=== PATIENT | female | born 1980 | race Caucasian/White ===

== ENCOUNTER 2020-01-01 12:22 | Emergency (ER) | payer BC, OTHER ==
[2020-01-01] MEDS ORDERED: Sodium Chloride 0.9% 1,000 ML IV ONE (12:55)
--- NOTE | 2020-01-01 13:01 | EDM.PDOC ---
ED HPI GENERAL MEDICAL PROBLEM - General Chief Complaint: Abdominal Pain Stated Complaint: ABDOMINAL PAIN Time Seen by Provider: 01/01/20 12:31 Source of Information: Reports: Patient History Limitations: Reports: No Limitations - History of Present Illness INITIAL COMMENTS - FREE TEXT/NARRATIVE: Shanell Juarez is a 39 female who presents the emergency room with chief complaints of right lower quadrant pain. She reports last eating around 1130 she had a sharp stabbing pain in her right lower quadrant which woke her up. She went to the [facility] this morning was evaluated and recommended she come to the emergency room for further evaluation and treatment. She denies any fever, chills, nausea, vomiting, constipation or diarrhea. She reports the pain is worse with movement. She currently rates her pain at 3/10 and refuses any pain medication at this time. She has been otherwise healthy she does have a history of hysterectomy and takes no medications on a regular basis. Onset Date: 12/31/19 Onset Time: 23:00 Duration: Intermittent Location: Reports: Abdomen Quality: Reports: Ache Severity: Mild Improves with: Reports: None Worsens with: Reports: Movement Context: Reports: Activity Associated Symptoms: Denies: Chest Pain, Fever/Chills, Nausea/Vomiting, Shortness of Breath Right Lower Abdomen Pain Score (Numeric/FACES): 3 - Related Data Allergies Allergy/AdvReac Type Severity Reaction Status Date / Time prochlorperazine Allergy Severe Airway Verified 01/01/20 12:35 [From Compazine] Tightness prochlorperazine edisylate Allergy Severe Airway Verified 01/01/20 12:35 [From Compazine] Tightness prochlorperazine maleate Allergy Severe Airway Verified 01/01/20 12:35 [From Compazine] Tightness codeine Allergy Swelling Verified 01/01/20 12:35 Penicillins Allergy Hives Verified 01/01/20 12:35 Home Meds: Home Meds Tamsulosin HCl [Flomax] 0.4 mg PO DAILY #14 cap.er.24h 01/01/20 [Rx] oxyCODONE HCl/Acetaminophen [Percocet 7.5-325 mg Tablet] 1 each PO Q6HR PRN #15 tablet 01/01/20 [Rx] Past Medical History Other Cardiovascular History: Chest wall pain - Past Surgical History HEENT Surgical History: Reports: Oral Surgery, Tonsillectomy Other HEENT Surgeries/Procedures: [place] teeth GI Surgical History: Reports: Cholecystectomy Female Surgical History: Reports: Hysterectomy Other Female Surgeries/Procedures: 2014 Social & Family History - Tobacco Use Smoking Status *Q: Never Smoker - Caffeine Use Caffeine Use: Reports: None - Recreational Drug Use Recreational Drug Use: No ED ROS GENERAL - Review of Systems Review Of Systems: See Below Constitutional: Denies: Fever, Chills HEENT: Reports: No Symptoms Respiratory: Denies: Shortness of Breath Cardiovascular: Denies: Chest Pain Endocrine: Reports: No Symptoms GI/Abdominal: Reports: Abdominal Pain. Denies: Constipation, Diarrhea, Nausea, Vomiting : Reports: No Symptoms Musculoskeletal: Reports: Back Pain (Lower back pain) Skin: Reports: No Symptoms Neurological: Reports: No Symptoms Psychiatric: Reports: No Symptoms Hematologic/Lymphatic: Reports: No Symptoms Immunologic: Reports: No Symptoms ED EXAM, GI/ABD - Physical Exam Exam: See Below Exam Limited By: No Limitations General Appearance: Alert, WD/WN, No Apparent Distress Throat/Mouth: Normal Inspection, Normal Lips, Normal Teeth, Normal Gums, Normal Oropharynx, Normal Voice, No Airway Compromise Neck: Normal Inspection, Supple, Non-Tender, Full Range of Motion Respiratory/Chest: No Respiratory Distress, Lungs Clear, Normal Breath Sounds, No Accessory Muscle Use, Chest Non-Tender Cardiovascular: Normal Peripheral Pulses, Regular Rate, Rhythm, No Edema, No Gallop, No JVD, No Murmur, No Rub GI/Abdominal Exam: Normal Bowel Sounds, Soft, No Organomegaly, No Distention, Tender. No: Guarding, Rigid, Rebound Back Exam: Normal Inspection, Full Range of Motion Extremities: Normal Inspection, Normal Range of Motion, Non-Tender, No Pedal Edema, Normal Capillary Refill Neurological: Alert, Oriented, CN II-XII Intact, Normal Cognition, Normal Gait Psychiatric: Normal Affect, Normal Mood Skin Exam: Warm, Dry, Intact, Normal Color, No Rash Lymphatic: No Adenopathy Course - Vital Signs Text/Narrative:: Shanell Juarez 39-year-old female who presents emergency room with chief complaints of right lower quadrant pain. She reports lasting about 1130 she woke up with a stabbing pain in her right lower quadrant. She went to [facility] this morning who referred her to the emergency room for further evaluation and treatment. She denies any nausea, vomiting, chills, fever, diarrhea or constipation. She is in no apparent distress at this time. Her current pain level is 3 out of 10 and she refuses any pain medication. I will order labs, urinalysis, IV fluids and a CT abdomen to further evaluate and treat. Discussed plan of care with patient which she verbalizes and is comfortable plan of care. Last Recorded V/S: Last Vital Signs Temp 97.5 F 01/01/20 12:31 Pulse 60 01/01/20 12:31 Resp 16 01/01/20 12:31 BP 135/84 01/01/20 12:31 Pulse Ox 100 01/01/20 12:31 - Orders/Labs/Meds Labs: Laboratory Tests 01/01/20 01/01/20 01/01/20 Range/Units 13:20 13:20 13:29 WBC 4.10 (3.98-10.04) K/mm3 RBC 3.97 L (3.98-5.22) M/mm3 Hgb 12.2 (11.2-15.7) gm/dl Hct 37.2 (34.1-44.9) % MCV 93.7 (79.4-94.8) fl MCH 30.7 (25.6-32.2) pg MCHC 32.8 (32.2-35.5) g/dl RDW Std Deviation 45.6 (36.4-46.3) fL Plt Count 236 (182-369) K/mm3 MPV 10.2 (9.4-12.3) fl Neut % (Auto) 57.5 (34.0-71.1) % Lymph % (Auto) 29.8 (19.3-51.7) % [place] % (Auto) 9.8 (4.7-12.5) % Eos % (Auto) 2.7 (0.7-5.8) Baso % (Auto) 0.2 (0.1-1.2) % Neut # (Auto) 2.36 (1.56-6.13) K/mm3 Lymph # (Auto) 1.22 (1.18-3.74) K/mm3 [place] # (Auto) 0.40 H (0.24-0.36) K/mm3 Eos # (Auto) 0.11 (0.04-0.36) K/mm3 Baso # (Auto) 0.01 (0.01-0.08) K/mm3 Sodium 139 (136-145) mEq/L Potassium 3.9 (3.5-5.1) mEq/L Chloride 106 (98-107) mEq/L Carbon Dioxide 27 (21-32) mEq/L Anion Gap 9.9 (5-15) BUN 13 (7-18) mg/dL Creatinine 0.8 (0.55-1.02) mg/dL Est Cr Clr Drug Dosing 84.11 mL/min Estimated GFR (MDRD) > 60 (>60) mL/min BUN/Creatinine Ratio 16.3 (14-18) Glucose 91 (74-106) mg/dL Calcium 8.5 (8.5-10.1) mg/dL Total Bilirubin 1.0 (0.2-1.0) mg/dL AST 17 (15-37) U/L ALT 17 (14-59) U/L Alkaline Phosphatase 67 (46-116) U/L Total Protein 6.9 (6.4-8.2) g/dl Albumin 3.9 (3.4-5.0) g/dl Globulin 3.0 gm/dL Albumin/Globulin Ratio 1.3 (1-2) Urine Color Yellow (Yellow) Urine Appearance Slt cloudy H (Clear) Urine pH 6.0 (5.0-8.0) Ur Specific [place] 1.025 (1.005-1.030) Urine Protein Negative (Negative) Urine Glucose (UA) Negative (Negative) Urine Ketones 2+ H (Negative) Urine Occult Blood Negative (Negative) Urine Nitrite Negative (Negative) Urine Bilirubin Negative (Negative) Urine Urobilinogen 0.2 (0.2-1.0) Ur Leukocyte Esterase Negative (Negative) Meds: Medications Discontinued Medications Generic Name Dose Route Start Last Admin Trade Name Freq PRN Reason Stop Dose Admin Sodium Chloride 1,000 mls @ 500 mls/hr 01/01/20 12:55 01/01/20 13:23 Normal Saline IV 01/01/20 14:54 500 mls/hr ONETIME ONE Administration Ketorolac Tromethamine 30 mg 01/01/20 13:56 01/01/20 14:00 Toradol IVPUSH 01/01/20 13:57 30 mg ONETIME ONE Administration - Re-Assessments/Exams Free Text/Narrative Re-Assessment/Exam: 01/01/20 14:25 WBC 4.10, RBC 3.97, hemoglobin 12.2, hematocrit 37.2, platelet count 236, sodium 139, potassium 3.9, chloride 106, CO2 27, BUN 13, creatinine 0.8, glucose 91 and urinalysis had +[address] revealed numerous nonobstructing calculi within both kidneys. No other acute findings. 01/01/20 15:09 Patient is resting comfortably at this time reports that she feels better after receiving medication. Discharge home with Flomax and Percocet for pain. Patient not to take Percocet and drink, drive or operate machinery. Patient to decrease her salt intake increase her fluid intake instructed patient to follow- up with her PCP. Instructed patient to return to the emergency room for any new acute worsening symptoms. Patient verbalized understanding and is, plan for discharge. I informed patient that she should consider following up with a urologist since she is having recurring kidney stones. Referral was given for Dr. Traylor. Departure - Departure Time of Disposition: 15:16 Disposition: Home, Self-Care 01 Condition: Good Clinical Impression: Kidney calculi Abdominal pain Qualifiers: Abdominal location: right lower quadrant Qualified Code(s): R10.31 - Right lower quadrant pain - Discharge Information Prescriptions: oxyCODONE HCl/Acetaminophen [Percocet 7.5-325 mg Tablet] 1 each PO Q6HR PRN #15 tablet PRN Reason: Pain Tamsulosin HCl [Flomax] 0.4 mg PO DAILY #14 cap.er.24h Instructions: Low-Purine Eating Plan, Kidney Stones, [id number], Abdominal Pain, Adult Referrals: Renate Lemons MD [Primary Care Provider] - Andrew Rodriguez MD [Ordering Only Provider] - Forms: ED Department Discharge Additional Instructions: You were seen and evaluated today for right lower quadrant abdominal pain. Your lab studies were unremarkable. You had no signs of infection in your bloodstream or urine. Your CAT scan did reveal numerous nonobstructing kidney stones in both kidneys. I recommend that you decrease your salt intake and increase your fluid intake. You were given a referral for Dr. Traylor who is a urologist that you may want to follow-up with if you continue to have symptoms. Follow-up with your PCP as needed. You have prescribed Flomax which will help facilitate you urine be sure to get up slowly while taking this medication. You were also prescribed Percocet for pain. Do not drink drive or operate machinery while taking this medication. Addition this medication may cause you to be constipated so you may want to increase her fiber intake. Return to the emergency room for any new or acute worsening symptoms. Sepsis Event Note - Evaluation Sepsis Screening Result: No Definite Risk - Focused Exam Vital Signs: Vital Signs Temp Pulse Resp BP Pulse Ox 01/01/20 12:31 97.5 F 60 16 135/84 100 Date Exam was Performed: 01/01/20 Time Exam was Performed: 15:08
--- NOTE | 2020-01-01 13:40 | CT ---
CT abdomen and pelvis Technique: Multiple axial sections were obtained from above the dome of the diaphragm inferiorly through the pubic symphysis. Intravenous and oral contrast not utilized. Findings: Multiple nonobstructing calculi are seen within both kidneys. No ureteral dilatation or ureteral stone is seen. Visualized lung bases show nothing acute. Liver contains no focal parenchymal abnormality. Surgical clips are seen from previous cholecystectomy. Spleen appears within normal limits. Adrenal glands show no nodule. Pancreas shows no discrete abnormality. Aorta shows no aneurysm. No retroperitoneal adenopathy or mesenteric abnormalities are seen. Appendix is not visualized with certainty. Slight increased stool is noted throughout the colon. No free fluid or inflammatory change is appreciated. Bone window settings were reviewed which show no acute osseous finding. Small fat-containing umbilical hernia is noted. Impression: 1. Numerous nonobstructing calculi within both kidneys. 2. Other findings as noted above. Nothing acute is appreciated on CT study of the abdomen and pelvis. Diagnostic code #2 This report was dictated in MDT
[2020-01-01] MEDS ORDERED: Ketorolac 30 MG/ML SDV IVPUSH ONE (13:56)
[2020-01-01 16:08] VITALS: BP 118/71; PULSE 68
== END 2020-01-01 16:05 | disposition home or self-care (01) ==
LOC: JD.ED 12:22
DX: N20.0 Calculus of kidney (principal); Z88.5 Allergy status to narcotic agent; Z88.0 Allergy status to penicillin; Z88.8 Allergy status to other drugs, medicaments and biological substances
CPT/HCPCS: 36415; 74176; 80053; 81003; 85025; 96374; 99284; J1885; J7030

== ENCOUNTER 2022-07-27 16:29 | Emergency (ER) | payer BC ==
[2022-07-27 16:55] VITALS: BP 133/79; PULSE 68
[2022-07-27] MEDS ORDERED: Ondansetron 4 MG/2 ML SDV IVPUSH ONE (17:00)
[2022-07-27] MEDS ORDERED: HYDROmorphone 1 MG/ML Syringe IVPUSH STA (17:00)
[2022-07-27] MEDS ORDERED: Sodium Chloride 0.9% 1,000 ML IV SCH (17:00)
[2022-07-27] MEDS ORDERED: Tamsulosin 0.4 MG Cap.ER PO ONE (18:04)
[2022-07-27] MEDS ORDERED: cefTRIAXone 2 GM in Sodium Chloride 0.9% 100 ML IV ONE (19:16)
[2022-07-27] MEDS ORDERED: Famotidine 20 MG/2 ML SDV IVPUSH ONE (19:20)
== END 2022-07-27 21:00 | disposition home or self-care (01) ==
LOC: JD.ED 16:29
DX: N30.01 Acute cystitis with hematuria (principal); N20.2 Calculus of kidney with calculus of ureter; Z87.891 Personal history of nicotine dependence; Z88.5 Allergy status to narcotic agent; Z88.0 Allergy status to penicillin; Z88.8 Allergy status to other drugs, medicaments and biological substances
CPT/HCPCS: 36415; 74176; 80053; 81001; 85025; 87086; 96361; 96365; 96375; 99284; A9270; J0696; J1170; J2405; J3490; J7030

== ENCOUNTER 2023-02-11 22:37 | Emergency (ER) | payer BC ==
[2023-02-11] MEDS ORDERED: Sodium Chloride 0.9% 1,000 ML IV ONE (23:01)
[2023-02-11] MEDS ORDERED: Ondansetron 4 MG/2 ML SDV IVPUSH ONE (23:01)
[2023-02-11] MEDS ORDERED: Sodium Chloride 0.9% 10 ML Syringe FLUSH PRN (23:01)
[2023-02-11] MEDS ORDERED: Iopamidol 612 MG/ML 100 ML Bottle IVPUSH ONE (23:12)
[2023-02-11 23:29] LABS: BASOPHILS ABSOLUTE AUTO 0.03 K/mm3 (0.01-0.08); BASOPHILS PERCENT AUTO 0.4 % (0.1-1.2); EOSINOPHILS ABSOLUTE AUTO 0.23 K/mm3 (0.04-0.36); EOSINOPHILS PERCENT AUTO 3.2 (0.7-5.8); HEMATOCRIT 38.2 % (34.1-44.9); HEMOGLOBIN 13.2 gm/dl (11.2-15.7); IMMATURE GRAN ABSOLUTE AUTO 0.01 K/mm3 (0.00-0.10); IMMATURE GRAN PERCENT AUTO 0.1 % (<=1.0); LYMPHOCYTES ABSOLUTE AUTO 2.72 K/mm3 (1.18-3.74); LYMPHOCYTES PERCENT AUTO 37.3 % (19.3-51.7); MEAN CORPUSCULAR HEMOGLOBIN 32.1 pg (25.6-32.2); MEAN CORPUSCULAR HGB CONC 34.6 g/dl (32.2-35.5); MEAN CORPUSCULAR VOLUME 92.9 fl (79.4-94.8); MONOCYTES ABSOLUTE AUTO 0.68 K/mm3 (0.24-0.36); MONOCYTES PERCENT AUTO 9.3 % (4.7-12.5); NEUTROPHILS ABSOLUTE AUTO 3.62 K/mm3 (1.56-6.13); NEUTROPHILS PERCENT AUTO 49.7 % (34.0-71.1); PLATELET COUNT,PLT 257 K/mm3 (182-369); RED BLOOD CELL COUNT 4.11 M/mm3 (3.98-5.22); WHITE BLOOD CELL COUNT,WBC 7.29 K/mm3 (3.98-10.04)
[2023-02-11 23:47] LABS: APPEARANCE,URINE CLEAR (Clear); BILIRUBIN,URINE NEGATIVE (Negative); COLOR,URINE YELLOW (Yellow); GLUCOSE,URINE NEGATIVE (Negative); KETONES,URINE 1+ (Negative); LEUKOCYTE ESTERASE,URINE TRACE (Negative); NITRITE,URINE NEGATIVE (Negative); OCCULT BLOOD,URINE 2+ (Negative); PH,URINE 6.5 (5.0-8.0); PROTEIN,URINE NEGATIVE (Negative); UROBILINOGEN,URINE 0.2 (0.2-1.0)
[2023-02-11 23:50] LABS: A/G RATIO 1.4 (1-2); ALBUMIN 4.1 g/dl (3.4-5.0); ANION GAP 18.8 (5-15); BUN/CREATININE RATIO 15.5 (14-18); C-REACTIVE PROTEIN 0.3 mg/dL (<1.0); CALCIUM 8.9 mg/dL (8.5-10.1); CREATININE 1.1 mg/dL (0.55-1.02); EST CRCL DRUG DOSING (CG) 59.34 mL/min; MAGNESIUM 1.8 mg/dL (1.8-2.4); POTASSIUM,K 2.8 mEq/L (3.5-5.1); PROTEIN TOTAL,TP 7.1 g/dl (6.4-8.2)
[2023-02-11 23:53] LABS: RBC,URINE 20-30 /hpf (0-5); WBC,URINE 0-5 /hpf (0-5)
[2023-02-11 23:54] LABS: BACTERIA,URINE MODERATE /hpf (FEW); MUCUS,URINE FEW /hpf (FEW)
[2023-02-12] MEDS ORDERED: Ketorolac 30 MG/ML SDV IVPUSH STA (01:39)
[2023-02-12] MEDS ORDERED: Tamsulosin 0.4 MG Cap.ER PO ONE (01:39)
[2023-02-12] MEDS ORDERED: HYDROmorphone 1 MG/ML Syringe IVPUSH ONE (01:39)
[2023-02-12] MEDS ORDERED: Potassium Chloride 20 MEQ Tab.ER PO ONE (01:48)
[2023-02-12 02:21] VITALS: BP 120/69; PULSE 80
== END 2023-02-12 02:17 | disposition home or self-care (01) ==
LOC: JD.ED 22:37
DX: N13.2 Hydronephrosis with renal and ureteral calculous obstruction (principal); Z88.5 Allergy status to narcotic agent; Z88.0 Allergy status to penicillin; Z88.8 Allergy status to other drugs, medicaments and biological substances; Z87.891 Personal history of nicotine dependence
CPT/HCPCS: 36415; 74177; 80053; 81001; 83690; 83735; 85025; 86140; 96361; 96374; 96375; 99284; A9270; J1170; J1885; J2405; J3490; J7030; Q9967